=== PATIENT | female | born 1985 | race Caucasian/White ===

== ENCOUNTER 2017-05-21 09:49 | Emergency (ER) | payer MEDICAID ==
[2017-05-21 09:55] VITALS: O2SAT 99
--- NOTE | 2017-05-21 10:41 | C.PDOC ---
History Of Present Illness 31 y/o female presents to ED with complaints of sore throat, body aches, runny nose and cough since yesterday. Patient states she took Motrin yesterday with some relief but symptoms returned. She denies n/v/d, chest pain, sob, fever, rash. Time Seen by Provider: 05/21/17 10:02 Chief Complaint (Nursing): ENT Problem History Per: Patient History/Exam Limitations: None Onset/Duration Of Symptoms: Days Current Symptoms Are (Timing): Still Present Symptoms Have Been: Continuous Severity: Mild Past Medical History Reviewed: Historical Data, Nursing Documentation, Vital Signs Vital Signs: Last Vital Signs Temp 98.6 F 05/21/17 11:15 Pulse 83 05/21/17 11:15 Resp 18 05/21/17 11:15 BP 130/69 05/21/17 11:15 Pulse Ox 99 05/21/17 11:15 - Medical History PMH: Anemia Family History: States: No Known Family Hx - Social History Hx Tobacco Use: No Hx Alcohol Use: No Hx Substance Use: No - Immunization History Hx Tetanus Toxoid Vaccination: No Hx Influenza Vaccination: Yes Hx Pneumococcal Vaccination: No Review Of Systems Except As Marked, All Systems Reviewed And Found Negative. Constitutional: Negative for: Fever, Chills ENT: Positive for: Nose Discharge, Throat Swelling Cardiovascular: Negative for: Chest Pain, Palpitations Respiratory: Positive for: Cough. Negative for: Shortness of Breath Gastrointestinal: Negative for: Nausea, Vomiting, Abdominal Pain, Diarrhea Genitourinary: Negative for: Dysuria Skin: Negative for: Rash Physical Exam - Physical Exam Appears: Well, Non-toxic, Other (Uncomfortable appearing, speaking in full sentences) Skin: Normal Color, Warm, Dry, No Rash Head: Normacephalic Oral Mucosa: Moist Throat: Erythema, Exudate, No Drooling, Other (Tonsils swollen with erythema and mild exudates) Neck: Normal, Normal ROM, Supple, Other (no meningismus) Lymphatic: No Adenopathy Cardiovascular: Rhythm Regular Respiratory: Normal Breath Sounds, No Rales, No Rhonchi, No Wheezing Gastrointestinal/Abdominal: Normal Exam, Bowel Sounds, Soft, No Tenderness Extremity: Normal ROM Neurological/Psych: Oriented x3 ED Course And Treatment O2 Sat by Pulse Oximetry: 99 (RA) Pulse Ox Interpretation: Normal Progress Note: Patient given IM toradol for pain. Strep swab ordered - was (-) . Patient reassurred that symptoms are likely viral, and that treatment is supportive. Rxs given for Naprosyn and Chloraseptic spray. She was instructed to follow up with PMD/clinic in 1-2 days. She understands she shiould return to ED if symptoms worsen. Disposition Counseled Patient/Family Regarding: Studies Performed, Diagnosis, Need For Followup, Rx Given - Disposition Referrals: [facility] [Outside] Disposition: HOME/ ROUTINE Disposition Time: 11:15 Condition: STABLE Additional Instructions: USE MEDICATIONS DIRECTED DRINK PLENTY OF FLUIDS RETURN TO ER IF SYMPTOMS WORSEN Prescriptions: Naproxen [Naprosyn Tab] 375 mg PO BID PRN #20 tab PRN Reason: pain Phenol/Glycerin [Chloraseptic Max Houghton] 1 spray MM Q6 PRN #1 spray PRN Reason: THROAT PAIN Instructions: Viral Syndrome (ED) Print Language: SINHALA - POA Present On Arrival: None - Clinical Impression Clinical Impression: Viral syndrome, Viral pharyngitis - Scribe Statement The provider has reviewed the documentation as recorded by the Elaineibursula Cole All medical record entries made by the Elaineibursula were at my direction and personally dictated by me. I have reviewed the chart and agree that the record accurately reflects my personal performance of the history, physical exam, medical decision making, and the department course for this patient. I have also personally directed, reviewed, and agree with the discharge instructions and disposition.
[2017-05-21 11:40] VITALS: BP 130/69; PULSE 83; RESP 18; TEMP 98.6
== END 2017-05-21 11:15 | disposition home or self-care (01) ==
LOC: C.ER 09:49
DX: J02.9 Acute pharyngitis, unspecified (principal); B34.9 Viral infection, unspecified
CPT/HCPCS: 87070; 87430; 96372; 99283; J1885

== ENCOUNTER 2017-10-08 19:46 | Emergency (ER) | payer MEDICAID ==
[2017-10-08 20:00] VITALS: BP 147/84; PULSE 88; TEMP 98.7; O2SAT 98
[2017-10-08] MEDS ORDERED: guaiFENesin 200 mg/10 ml Syrup UD PO ONE (20:53)
--- NOTE | 2017-10-08 20:58 | C.PDOC ---
History Of Present Illness 31yo female, presents to ED for evaluation of sore throat, chest congestion, cough for the past couple days. She denies any fever, shortness of breath, chest pain or recent travels. Of note, patient reports a positive sick contact, states her son had bronchitis. No other complaints. Time Seen by Provider: 10/08/17 20:07 Chief Complaint (Nursing): ENT Problem History Per: Patient History/Exam Limitations: no limitations Onset/Duration Of Symptoms: Days Current Symptoms Are (Timing): Still Present Location Of Pain: Throat Associated Symptoms: Cough, Other (chest congestion). denies: Fever Recent travel outside of the [place]: No Additional History Per: Patient Past Medical History Reviewed: Historical Data, Nursing Documentation, Vital Signs Vital Signs: Last Vital Signs Temp 98.7 F 10/08/17 19:56 Pulse 88 10/08/17 19:56 Resp 20 10/08/17 21:08 BP 147/84 10/08/17 19:56 Pulse Ox 98 10/08/17 21:24 - Medical History PMH: Anemia Surgical History: No Surg Hx Family History: States: No Known Family Hx, Unknown Family Hx - Social History Hx Tobacco Use: No Hx Alcohol Use: No Hx Substance Use: No - Immunization History Hx Tetanus Toxoid Vaccination: No Hx Influenza Vaccination: Yes Hx Pneumococcal Vaccination: No Review Of Systems Constitutional: Negative for: Fever, Chills, Malaise ENT: Positive for: Nose Congestion, Throat Pain. Negative for: Ear Pain, Nose Discharge, Mouth Pain Cardiovascular: Positive for: Other (chest congestion). Negative for: Chest Pain Respiratory: Negative for: Cough, Shortness of Breath Gastrointestinal: Negative for: Nausea, Vomiting Skin: Negative for: Rash, Lesions Physical Exam - Physical Exam Appears: Well, Non-toxic, No Acute Distress Skin: Normal Color, Warm, Dry, No Rash Head: Atraumatic, Normacephalic Eye(s): bilateral: Normal Inspection, PERRL, EOMI Ear(s): Bilateral: Normal Nose: Normal, No Flaring, No Discharge, Tenderness (to the L maxillary sinus) Oral Mucosa: Moist Throat: Normal, No Erythema, No Exudate Neck: Normal, Normal ROM, Supple Chest: Tenderness Cardiovascular: Rhythm Regular, No Murmur Respiratory: Normal Breath Sounds, No Rales, No Rhonchi, No Wheezing Extremity: Normal ROM, No Tenderness, No Swelling Neurological/Psych: Oriented x3, Normal Cranial Nerves, Normal Motor, Normal Sensation ED Course And Treatment O2 Sat by Pulse Oximetry: 98 (RA) Pulse Ox Interpretation: Normal Progress Note: Robitussin and Motrin given. Patient stable for discharge home, informed to follow up with PCP in 1-2 days. Disposition Counseled Patient/Family Regarding: Diagnosis, Need For Followup, Rx Given - Disposition Referrals: Non [facility] Provider, [Primary Care Provider] - Disposition: HOME/ ROUTINE Disposition Time: 20:56 Condition: STABLE Additional Instructions: Follow up with your pmd in 2 days without fail for further evaluation. Take medication as prescribed. Return to the ER at any time for any new or worsening symptoms. 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 - Scribe Statement The provider has reviewed the documentation as recorded by the Adriane Akins Provider Attestation: All medical record entries made by the Adriane were at my direction and personally dictated by me. I have reviewed the chart and agree that the record accurately reflects my personal performance of the history, physical exam, medical decision making, and the department course for this patient. I have also personally directed, reviewed, and agree with the discharge instructions and disposition.
[2017-10-08] MEDS ORDERED: guaiFENesin 200 mg/10 ml Syrup UD ONE (21:04)
[2017-10-08 21:09] VITALS: RESP 20
== END 2017-10-08 21:08 | disposition home or self-care (01) ==
LOC: C.ER 19:46 → SUPCPDRO 19:46 → C.ER 21:08
DX: B34.9 Viral infection, unspecified (principal)

== ENCOUNTER 2017-12-08 13:46 | Emergency (ER) | payer MEDICAID ==
[2017-12-08 13:51] VITALS: BMI 28.2
[2017-12-08 13:55] VITALS: O2SAT 99
--- NOTE | 2017-12-08 14:50 | C.PDOC ---
History Of Present Illness 32 year old female presents to the ED for evaluation of watery, foul smelling discharge from her umbilicus. Patient reports she had several ovarian cysts removed by her OBGYN on [address] this past Saturday. Patient reports she has been cleaning the wound with peroxide as instructed. Patient states she noticed a watery mal odorous discharge and blood leaking. Patient reported she called her OBGYN today who was not in the office which prompted the visit to the ED. Patient denies fever, chills, nausea, vomit, diarrhea. Time Seen by Provider: 12/08/17 14:32 Chief Complaint (Nursing): Abdominal Pain History Per: Patient History/Exam Limitations: no limitations Onset/Duration Of Symptoms: Days Location Of Pain/Discomfort: Epigastric Radiation Of Pain To:: None Quality Of Discomfort: "Pain" Exacerbating Factors: None Alleviating Factors: None Recent travel outside of the [place]: No Additional History Per: Patient Abnormal Vaginal Bleeding: No Past Medical History Reviewed: Historical Data, Nursing Documentation, Vital Signs Vital Signs: Last Vital Signs Temp 98.2 F 12/08/17 18:43 Pulse 81 12/08/17 18:43 Resp 16 12/08/17 18:43 BP 109/70 12/08/17 18:43 Pulse Ox 99 12/08/17 18:43 - Medical History PMH: Anemia Surgical History: No Surg Hx Family History: States: Unknown Family Hx - Social History Hx Tobacco Use: No Hx Alcohol Use: No Hx Substance Use: No - Immunization History Hx Tetanus Toxoid Vaccination: No Hx Influenza Vaccination: Yes Hx Pneumococcal Vaccination: No Review Of Systems Constitutional: Negative for: Fever, Chills Cardiovascular: Negative for: Chest Pain Respiratory: Negative for: Cough, Shortness of Breath Gastrointestinal: Negative for: Nausea, Vomiting, Abdominal Pain Skin: Positive for: Other (Wounds in the abdominal wall). Negative for: Rash Neurological: Negative for: Weakness, Numbness Physical Exam - Physical Exam Appears: Non-toxic, No Acute Distress Skin: Normal Color, Warm, Dry Head: Atraumatic, Normacephalic Eye(s): bilateral: Normal Inspection Nose: No Discharge, No Deformity Oral Mucosa: Moist Neck: Normal ROM, Supple Chest: Symmetrical Cardiovascular: Rhythm Regular, No Murmur Respiratory: Normal Breath Sounds, No Rales, No Rhonchi, No Wheezing Gastrointestinal/Abdominal: Soft, Tenderness (abdominal wall), No Guarding, No Rebound, Other (multiple wounds to abdominal wall, umbilicus wound moderate erythema aorund it, non belching, indurated skin wit a watery d/c coming out foul odor) Extremity: Normal ROM, No Deformity, No Swelling Neurological/Psych: Oriented x3, Normal Speech, Normal Cognition Gait: Steady ED Course And Treatment - Laboratory Results Result Diagrams: 12/08/17 15:39 12/08/17 15:39 O2 Sat by Pulse Oximetry: 99 (ON RA) Pulse Ox Interpretation: Normal - CT Scan/US CT abd/pelvis Other Rad Studies (CT/US): Read By Radiologist, Radiology Report Reviewed CT/US Interpretation: CT Scan. . . ABD PELVIS IV CONTRAST ONLY Exam Date: 12/08/17. . This imaging exam was performed at [facility]. EXAM: CT Abdomen and Pelvis With Intravenous Contrast. . CLINICAL HISTORY: 32 years old, female; Pain; Abdominal pain; Generalized; Additional info: Sp. ovarian cyst lap +perium dc, redness RO abscess. . TECHNIQUE: Axial computed tomography images of the abdomen and pelvis with intravenous. contrast. All CT scans at this facility use one or more dose reduction. techniques, viz.: automated exposure control; ma/kV adjustment per patient size. (including targeted exams where dose is matched to indication; i.e. head); or. iterative reconstruction technique. Coronal and sagittal reformatted images were created and reviewed. . CONTRAST: 100 mL of [id number] administered intravenously. . COMPARISON: MR - PELVIS W/WO CONTRAST 15:52. . FINDINGS: Limitations: Motion artifact - mild. Lower thorax: Mild atelectasis/scarring. . ABDOMEN: Liver: Unremarkable. No mass. Gallbladder and bile ducts: No calcified stones. No ductal dilation. Pancreas : No ductal dilation. No mass. Spleen: No splenomegaly. Adrenals: No mass. Kidneys and ureters: Mild scarring/atrophy of right kidney. Probable RIGHT. renal cyst. No hydronephrosis. Stomach and bowel: No definite mural thickening. No obstruction. Appendix: Normal caliber. No inflammation. . PELVIS: Bladder: Unremarkable. Reproductive: Unremarkable as visualized. . ABDOMEN and PELVIS: Intraperitoneal space: Scattered foci of extraluminal air within abdomen. Bones/joints: No acute fracture. Soft tissues: Mild focal skin thickening of anterior abdominal wall and. umbilicus. Moderate stranding within subcutaneous tissues of anterior. abdominal wall. Small cluster of air within subcutaneous tissues to right of. umbilicus. No discrete peripherally enhancing fluid collection. Probable. multiple noncalcified injection granulomas within gluteal soft tissues. Vasculature: Unremarkable. No aneurysm. Lymph nodes: No pathologically enlarged lymph nodes. . IMPRESSION: 1. Stranding/air within anterior abdominal wall. Findings may be related to. recent surgery and/or infection. No abscess. Clinical correlation is needed. 2. Pneumoperitoneum, likely related to recent surgery. Correlate with surgical. history. 3. Incidental/non-acute findings are described above. Reevaluation Time: 18:26 Reassessment Condition: Improved (NAD NONTOXIC. S/P ABX. ADVISED FU OBGYN. DC ABX) Medical Decision Making Medical Decision Making: Impression: post op wound with watery malodorous d/c Plan: * CT abd/pelvis * Labs * Ancef 1,000 mg IVP * Blood culture * Wound culture * Treat for cellulitis Disposition Counseled Patient/Family Regarding: Studies Performed, Diagnosis, Need For Followup, Rx Given - Disposition Referrals: YOUR,OBGYN [Other] Disposition: HOME/ ROUTINE Disposition Time: 18:26 Condition: IMPROVED Prescriptions: Moxifloxacin [Avelox] 400 mg PO DAILY #7 tab Instructions: Cellulitis (ED) Forms: [facility] (Kittitian) - Clinical Impression Clinical Impression: Cellulitis - Scribe Statement The provider has reviewed the documentation as recorded by the Scribe Florian Conrad All medical record entries made by the Elaineibursula were at my direction and personally dictated by me. I have reviewed the chart and agree that the record accurately reflects my personal performance of the history, physical exam, medical decision making, and the department course for this patient. I have also personally directed, reviewed, and agree with the discharge instructions and disposition.
[2017-12-08 15:46] LABS: BASO # 0.1 K/uL (0.0-0.2); BASO % 1.1 % (0.0-2.0); EOS # 0.1 K/uL (0.0-0.7); EOS % 1.5 % (0.0-4.0); HEMOGLOBIN 10.7 g/dL (11.0-16.0); LYMPH # 1.8 K/uL (1.0-4.3); LYMPH % 18.2 % (20.0-40.0); MEAN CORPUSCULAR HEMOGLOBIN 22.8 pg (27.0-31.0); MEAN CORPUSCULAR HGB CONC 31.7 g/dL (33.0-37.0); MEAN PLATELET VOLUME 8.7 fL (7.2-11.7); MONO # 0.8 K/uL (0.0-0.8); MONO % 8.6 % (0.0-10.0); NEUT # 6.8 K/uL (1.8-7.0); NEUT % 70.6 % (50.0-75.0); RBC 4.68 Mil/uL (3.80-5.20); RED CELL DISTRIBUTION WIDTH 17.6 % (11.5-14.5); WHITE BLOOD COUNT 9.7 K/uL (4.8-10.8)
[2017-12-08 15:47] LABS: MEAN CELL VOLUME 72.1 fL (81.0-99.0)
[2017-12-08 15:54] LABS: BLOOD UREA NITROGEN 12 mg/dL (7-17); CALCIUM 9.1 mg/dl (8.6-10.4); GFR AFRICAN-AMERICAN > 60; GFR NON-AFRICAN AMERICAN > 60
[2017-12-08] MEDS ORDERED: Iodixanol 320 MG/ML 100 ML BOTTLE IV ONE (16:21)
--- NOTE | 2017-12-08 18:22 | CT ---
EXAM: CT Abdomen and Pelvis With Intravenous Contrast CLINICAL HISTORY: 32 years old, female; Pain; Abdominal pain; Generalized; Additional info: Sp ovarian cyst lap +perium dc, redness RO abscess TECHNIQUE: Axial computed tomography images of the abdomen and pelvis with intravenous contrast. All CT scans at this facility use one or more dose reduction techniques, viz.: automated exposure control; ma/kV adjustment per patient size (including targeted exams where dose is matched to indication; i.e. head); or iterative reconstruction technique. Coronal and sagittal reformatted images were created and reviewed. CONTRAST: 100 mL of [id number] administered intravenously. COMPARISON: MR - PELVIS W/WO CONTRAST 2016-03-26 15:52 FINDINGS: Limitations: Motion artifact - mild. Lower thorax: Mild atelectasis/scarring. ABDOMEN: Liver: Unremarkable. No mass. Gallbladder and bile ducts: No calcified stones. No ductal dilation. Pancreas: No ductal dilation. No mass. Spleen: No splenomegaly. Adrenals: No mass. Kidneys and ureters: Mild scarring/atrophy of right kidney. Probable RIGHT renal cyst. No hydronephrosis. Stomach and bowel: No definite mural thickening. No obstruction. Appendix: Normal caliber. No inflammation. PELVIS: Bladder: Unremarkable. Reproductive: Unremarkable as visualized. ABDOMEN and PELVIS: Intraperitoneal space: Scattered foci of extraluminal air within abdomen. Bones/joints: No acute fracture. Soft tissues: Mild focal skin thickening of anterior abdominal wall and umbilicus. Moderate stranding within subcutaneous tissues of anterior abdominal wall. Small cluster of air within subcutaneous tissues to right of umbilicus. No discrete peripherally enhancing fluid collection. Probable multiple noncalcified injection granulomas within gluteal soft tissues. Vasculature: Unremarkable. No aneurysm. Lymph nodes: No pathologically enlarged lymph nodes. IMPRESSION: 1. Stranding/air within anterior abdominal wall. Findings may be related to recent surgery and/or infection. No abscess. Clinical correlation is needed. 2. Pneumoperitoneum, likely related to recent surgery. Correlate with surgical history. 3. Incidental/non-acute findings are described above.
[2017-12-08 18:45] VITALS: BP 109/70; PULSE 81; RESP 16; TEMP 98.2
== END 2017-12-08 18:43 | disposition home or self-care (01) ==
LOC: C.ER 13:46
DX: T81.4XXA Infection following a procedure, initial encounter (principal); L03.316 Cellulitis of umbilicus; Y83.9 Surgical procedure, unspecified as the cause of abnormal reaction of the patient, or of later complication, without mention of misadventure at the time of the procedure
CPT/HCPCS: 74177; 80048; 85025; 87040; 87070; 96365; 99284; J0690; J7050; Q9967